=== PATIENT | male | born 1980 | race African-American/Black ===

== ENCOUNTER 2019-11-30 11:21 | Emergency (ER) | payer MEDICAID, SELFPAY ==
[~2019-11-30] VITALS: Ht 180.3 cm; Wt 89.8 kg
[2019-11-30 11:22] VITALS: BP 121/72
--- NOTE | 2019-11-30 11:22 | NUR ---
Patient ambulated to bed 4. RN evaluating patient at bedside.
[2019-11-30] MEDS ORDERED: NACL 0.9% 1,000 ML IV ONE (11:35)
--- NOTE | 2019-11-30 11:35 | NUR ---
A39 Y/M PRESENTS WITH FATIGUE, DIZZINESS X 2 DAY. PT DENIES SOB, FEVER, N/V/D, CP, SICK CONTACTS. PATIENT STATES PAIN OF 0/10 AT THIS TIME; VSS; PATIENT POSITIONED FOR COMFORT; HOB ELEVATED; BEDRAILS UP X1; BED DOWN. ER MD MADE AWARE OF PT STATUS.
[2019-11-30 12:02] LABS: BASOPHILS # (AUTO) 0.1 K/uL (0.00-0.22); BASOPHILS % (AUTO) 1.5 % (0.0-2.0); EOSINOPHILS # (AUTO) 0.3 K/uL (0-0.4); EOSINOPHILS % (AUTO) 5.9 % (0.0-4.0); HEMATOCRIT 45.4 % (36-52); HEMOGLOBIN 15.1 g/dL (12.0-18.0); LYMPHOCYTES # (AUTO) 1.8 K/uL (2.0-11.5); LYMPHOCYTES % (AUTO) 40.9 % (20.5-51.1); MEAN CORPUSCULAR HEMOGLOBIN 29 pg (27-31); MEAN CORPUSCULAR HGB CONC 33 g/dL (33-37); MEAN CORPUSCULAR VOLUME 87.7 fL (80-94); MONOCYTES # (AUTO) 0.3 K/uL (0.8-1.0); MONOCYTES % (AUTO) 6.6 % (1.7-9.3); NEUTROPHILS # (AUTO) 1.9 K/uL (1.8-7.7); NEUTROPHILS % (AUTO) 45.1 % (42.2-75.2); PLATELET COUNT (AUTO) 194 K/uL (140-450); RED BLOOD CELL COUNT(AUTO) 5.17 MIL/uL (4.20-6.10); RED CELL DISTRIBUTION WIDTH 13.9 % (11.6-13.7); WHITE BLOOD COUNT (AUTO) 4.3 K/uL (4.8-10.8)
[2019-11-30 12:04] LABS: APPEARANCE,URINE CLEAR (CLEAR); BILIRUBIN,URINE NEGATIVE (NEGATIVE); BLOOD, URINE NEGATIVE (NEGATIVE); COLOR,URINE YELLOW (YELLOW); LEUKOCYTE ESTERASE ,URINE NEGATIVE (NEGATIVE); NITRITE, URINE NEGATIVE (NEGATIVE); PH,URINE 6.5 (5.0-9.0); UGLUCOSE NEGATIVE (NEGATIVE)
--- NOTE | 2019-11-30 12:08 | NUR ---
XRAY IS AT BEDSIDE.
[2019-11-30 12:31] LABS: ALBUMIN 4.4 g/dL (3.4-5.0); ANION GAP 15.1 (8-16); CARBON DIOXIDE 25.8 mmol/L (21-32); CREATININE 1.2 mg/dL (0.6-1.3); FREE T4 (FREE THYROXINE) 0.89 ng/dL (0.76-1.46); POTASSIUM 3.9 mmol/L (3.5-5.1); THYROID STIMULATING HORMONE 1.48 uIU/mL (0.34-3.74); TOTAL BILIRUBIN 0.7 mg/dL (0.0-1.0)
--- NOTE | 2019-11-30 13:12 | NUR ---
COVID SWAB OBTAINED AND SENT TO THE LAB.
--- NOTE | 2019-11-30 13:27 | NUR ---
Patient discharged with v/s stable. Written and verbal after care instructions given and explained. Patient alert, oriented and verbalized understanding of instructions. Ambulatory with steady gait. All questions addressed prior to discharge. ID band removed. Patient advised to follow up with PMD. Rx of Tamiflu given. Patient educated on indication of medication including possible reaction and side effects. Opportunity to ask questions provided and answered.
[2019-11-30 13:28] VITALS: BP 123/71
== END 2019-11-30 13:27 | disposition home or self-care (01) ==
LOC: EEVIPCON 11:21 → MED 11:21
DX: R53.1 Weakness (principal); Z20.828 Contact with and (suspected) exposure to other viral communicable diseases
CPT/HCPCS: 71045; 80053; 81003; 84439; 84443; 85025; 87804; 93005; 96360; 99285; J7030; U0003

== ENCOUNTER 2020-03-11 05:40 | Emergency (ER) | payer MEDICAID, SELFPAY ==
[~2020-03-11] VITALS: Ht 180.3 cm; Wt 95.3 kg
[2020-03-11 05:45] VITALS: BP 128/70
[2020-03-11 06:07] VITALS: BP 128/70
== END 2020-03-11 06:07 | disposition home or self-care (01) ==
LOC: MED 05:40
DX: K13.79 Other lesions of oral mucosa (principal); R03.0 Elevated blood-pressure reading, without diagnosis of hypertension
CPT/HCPCS: 99283

== ENCOUNTER 2020-03-14 18:13 | Emergency (ER) | payer MEDICAID ==
[~2020-03-14] VITALS: Ht 180.3 cm; Wt 98.0 kg
[2020-03-14 18:28] VITALS: BP 147/89
--- NOTE | 2020-03-14 18:35 | NUR ---
PATIENT AMBULATED TO BED 9.
--- NOTE | 2020-03-14 18:47 | NUR ---
Pt seen and discharged by QUINN abreu. No nursing care rendered. Pt discharged with Naprosyn 500mg, Prednisone 20mg and Chloraseptic throat spray
[2020-03-14 18:48] VITALS: BP 147/89
== END 2020-03-14 18:47 | disposition home or self-care (01) ==
LOC: MED 18:13
DX: J02.9 Acute pharyngitis, unspecified (principal)
CPT/HCPCS: 99283

== ENCOUNTER 2020-06-24 15:26 | Emergency (ER) | payer MEDICAID ==
[~2020-06-24] VITALS: Ht 180.3 cm; Wt 90.7 kg
[2020-06-24 15:42] VITALS: BP 136/85
--- NOTE | 2020-06-24 15:45 | NUR ---
TENT1
[2020-06-24 16:34] VITALS: BP 136/85
--- NOTE | 2020-06-24 16:35 | NUR ---
Patient discharged with v/s stable. Written and verbal after care instructions given and explained. Patient alert, oriented and verbalized understanding of instructions. Ambulatory with steady gait. All questions addressed prior to discharge. ID band removed. Patient advised to follow up with PMD. Rx of Tylenol extra strength 500mg given. Patient educated on indication of medication including possible reaction and side effects. Opportunity to ask questions provided and answered.
== END 2020-06-24 16:35 | disposition home or self-care (01) ==
LOC: MED 15:26
DX: U07.1 COVID-19 (principal)
CPT/HCPCS: 99282

== ENCOUNTER 2020-12-19 08:42 | Emergency (ER) | payer MEDICAID ==
[~2020-12-19] VITALS: Ht 180.3 cm; Wt 99.3 kg
[2020-12-19 08:45] VITALS: BP 124/79
--- NOTE | 2020-12-19 09:00 | NUR ---
40 Y/O MALE C/O BILATERAL EAR PAIN X SATURDAY. PT STATES INTERMITTENT 10/10, SHARP PAIN WITH RINGING. WITH C/O RASH TO BACK OF HEAD, WITH BURNING PAIN. NO REDNESS NOTED. DENIES TRAUMA OR INJURY TO AREA. ALSO REPORTS HEADACHE X 1 DAY. DENIES ANY RECENT FEVER, COUGH, SORE THROAT. TOOK TYLENOL YESTERDAY AFTERNOON WHICH PROVIDED MILD RELIEF. PMH: NONE NKA
--- NOTE | 2020-12-19 09:11 | NUR ---
DR RODRIGUEZ AT BEDSIDE EXAMINING PT
[2020-12-19] MEDS ORDERED: CEPH-588 PO (09:19)
[2020-12-19 09:27] VITALS: BP 124/79
== END 2020-12-19 09:27 | disposition home or self-care (01) ==
LOC: MED 08:42
DX: L03.811 Cellulitis of head [any part, except face] (principal); H92.03 Otalgia, bilateral
CPT/HCPCS: 99283

== ENCOUNTER 2020-12-28 09:28 | Emergency (ER) | payer MEDICAID ==
[~2020-12-28] VITALS: Ht 180.3 cm; Wt 90.7 kg
[~2020-12-28 09:28] MED LIST: CEPH-588 PO
[2020-12-28 09:30] VITALS: BP 139/78
--- NOTE | 2020-12-28 09:30 | NUR ---
TO BED AMBULATORY
--- NOTE | 2020-12-28 09:45 | NUR ---
ERMD assessing patient at the bedside.
--- NOTE | 2020-12-28 09:54 | NUR ---
Patient is a 40 y/o male c/o generalized weakness, chills, subjective fever, and productive cough x3 days. 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 Patient reports taking antibiotics for (L) ear infection but stopped them two days ago because he did not know if the medication was making him feel sick. Patient denies recent travel or sick contacts in the home. Patient denies chest pain, SOB, abdominal pain, n/v/d. PMH:denies NKA Rx: denies
--- NOTE | 2020-12-28 10:00 | NUR ---
Nadege and influenza A/B collected by this development writer and taken to the lab. Specimens handed to Marcos altamirano.
[2020-12-28 11:20] VITALS: BP 139/78
--- NOTE | 2020-12-28 11:20 | NUR ---
Patient discharged with v/s stable. Written and verbal after care instructions given and explained. Patient verbalized understanding. Ambulatory with steady gait. All questions addressed prior to discharge. Advised to follow up with PMD.
== END 2020-12-28 11:20 | disposition home or self-care (01) ==
LOC: MED 09:28
DX: B34.9 Viral infection, unspecified (principal); Z20.822 Contact with and (suspected) exposure to COVID-19; Z79.899 Other long term (current) drug therapy
CPT/HCPCS: 87804; 99283

== ENCOUNTER 2021-02-20 16:25 | Emergency (ER) | payer MEDICAID ==
[~2021-02-20] VITALS: Ht 185.4 cm; Wt 98.5 kg
[2021-02-20 17:07] VITALS: BP 124/71
--- NOTE | 2021-02-20 17:14 | NUR ---
PT IN ER LOBBY
[2021-02-20] MEDS ORDERED: KETOROLAC 60 MG/2 ML VIAL IM ONE (17:20)
[2021-02-20] MEDS ORDERED: LIDO1ADH47 TP (17:29)
[2021-02-20] MEDS ORDERED: METH-1681 PO (17:29)
[2021-02-20] MEDS ORDERED: NAPR-54 PO (17:29)
[2021-02-20 17:50] VITALS: BP 124/71
--- NOTE | 2021-02-20 17:50 | NUR ---
Patient discharged with v/s stable. Written and verbal after care instructions given and explained. Patient alert, oriented and verbalized understanding of instructions. Ambulatory with steady gait. All questions addressed prior to discharge. ID band removed. Patient advised to follow up with PMD. Rx of ROBAXIN, NAPROSYN, LIDOCAINE given. Patient educated on indication of medication including possible reaction and side effects. Opportunity to ask questions provided and answered.
== END 2021-02-20 17:50 | disposition home or self-care (01) ==
LOC: MED 16:25
DX: S39.012A Strain of muscle, fascia and tendon of lower back, initial encounter (principal); X50.0XXA Overexertion from strenuous movement or load, initial encounter; Y93.9 Activity, unspecified; Y92.89 Other specified places as the place of occurrence of the external cause; Y99.8 Other external cause status
CPT/HCPCS: 81002; 96372; 99283; J1885

== ENCOUNTER 2021-03-29 09:33 | Emergency (ER) | payer MEDICAID ==
[~2021-03-29] VITALS: Ht 154.9 cm; Wt 98.4 kg
[~2021-03-29 09:33] MED LIST changes: -CEPH-588 PO; +LIDO1ADH47 TP; +METH-1681 PO; +NAPR-54 PO
[2021-03-29 09:40] VITALS: BP 124/69
--- NOTE | 2021-03-29 09:44 | NUR ---
PT AMBULATED TO BED
--- NOTE | 2021-03-29 09:51 | NUR ---
40 Y/O MALE BIB SELF WITH C/O BACK PAIN, FATIGUE AND HEADACHE SINCE YESTERDAY. DENIES ANY RECENT INJURY OR TRAUMA. REPORTS TAKING TYLENOL AND TOPICAL WITH SOME RELIEF, DENIES FEVER, CP, SOB. PT STATES 9/10 CONTINOUS PAIN. MEDHX: DENIES ALLERGIES: DENIES
--- NOTE | 2021-03-29 10:04 | NUR ---
SAID AT BEDSIDE EXAMINING PT
[2021-03-29] MEDS ORDERED: LIDOCAINE 5% 1 EA PATCH TP ONE (10:26)
--- NOTE | 2021-03-29 10:29 | NUR ---
LAB AT BEDSIDE
[2021-03-29] MEDS: LIDOCAINE 5% 1 EA PATCH TP SCH (10:30)
[2021-03-29] MEDS: NAPROXEN 500 MG TAB PO SCH (10:30)
--- NOTE | 2021-03-29 10:35 | NUR ---
NOVEL SWAB COLLECTED AND HANDED TO ISAURA HARRELL
[2021-03-29 10:47] LABS: BASOPHILS % (AUTO) 0.9 % (0.0-2.0); EOSINOPHILS # (AUTO) 0.3 K/uL (0-0.4); EOSINOPHILS % (AUTO) 8.4 % (0.0-4.0); HEMOGLOBIN 14.1 g/dL (12.0-18.0); LYMPHOCYTES # (AUTO) 1.7 K/uL (2.0-11.5); MEAN CORPUSCULAR HEMOGLOBIN 30 pg (27-31); MEAN CORPUSCULAR HGB CONC 34 g/dL (33-37); MEAN CORPUSCULAR VOLUME 88.1 fL (80-94); MONOCYTES # (AUTO) 0.3 K/uL (0.8-1.0); NEUTROPHILS # (AUTO) 1.2 K/uL (1.8-7.7); NEUTROPHILS % (AUTO) 33.7 % (42.2-75.2); PLATELET COUNT (AUTO) 162 K/uL (140-450); RED BLOOD CELL COUNT(AUTO) 4.76 MIL/uL (4.20-6.10); RED CELL DISTRIBUTION WIDTH 13.9 % (11.6-13.7); WHITE BLOOD COUNT (AUTO) 3.5 K/uL (4.8-10.8)
[2021-03-29 11:02] LABS: ALBUMIN 4.3 g/dL (3.4-5.0); ANION GAP 11.7 (8-16); CARBON DIOXIDE 28.6 mmol/L (21-32); POTASSIUM 4.3 mmol/L (3.5-5.1); TOTAL BILIRUBIN 0.5 mg/dL (0.0-1.0)
[2021-03-29] MEDS ORDERED: CYCL-711 PO (11:27)
[2021-03-29] MEDS ORDERED: LID5T TP (11:27)
[2021-03-29] MEDS ORDERED: NAPR-54 PO (11:27)
[2021-03-29 11:47] VITALS: BP 124/69
--- NOTE | 2021-03-29 11:47 | NUR ---
Patient discharged with v/s stable. Written and verbal after care instructions given and explained. Patient alert, oriented and verbalized understanding of instructions. Ambulatory with steady gait. All questions addressed prior to discharge. ID band removed. Patient advised to follow up with PMD. Rx of FLEXERIL, LIDODERM PATCH 5%, AND NAPROSYN given. Patient educated on indication of medication including possible reaction and side effects. Opportunity to ask questions provided and answered.
== END 2021-03-29 11:47 | disposition home or self-care (01) ==
LOC: MED 09:33
DX: M54.9 Dorsalgia, unspecified (principal); Z20.822 Contact with and (suspected) exposure to COVID-19
CPT/HCPCS: 36415; 80053; 85025; 99283; U0003

== ENCOUNTER 2021-07-08 09:45 | Emergency (ER) | payer MEDICAID ==
[~2021-07-08] VITALS: Ht 182.9 cm; Wt 95.3 kg
[~2021-07-08 09:45] MED LIST changes: +CYCL-711 PO; +LID5T TP
[2021-07-08 09:57] VITALS: BP 124/73
--- NOTE | 2021-07-08 10:04 | NUR ---
TENT3
--- NOTE | 2021-07-08 10:10 | NUR ---
C/O COUGH, FEVER, 4/10 CONCEPCION, WEAKNESS, CONGESTION S/P COVID VACCINE 2ND DOSE X 4 DAYS.
[2021-07-08 13:10] LABS: BASOPHILS # (AUTO) 0.1 K/uL (0.00-0.22); BASOPHILS % (AUTO) 1.1 % (0.0-2.0); EOSINOPHILS # (AUTO) 0.6 K/uL (0-0.4); EOSINOPHILS % (AUTO) 11.6 % (0.0-4.0); HEMATOCRIT 40.8 % (36-52); HEMOGLOBIN 14.2 g/dL (12.0-18.0); LYMPHOCYTES # (AUTO) 2.2 K/uL (2.0-11.5); MEAN CORPUSCULAR HEMOGLOBIN 30 pg (27-31); MEAN CORPUSCULAR HGB CONC 35 g/dL (33-37); MEAN CORPUSCULAR VOLUME 86.3 fL (80-94); MONOCYTES # (AUTO) 0.5 K/uL (0.8-1.0); MONOCYTES % (AUTO) 9.9 % (1.7-9.3); NEUTROPHILS # (AUTO) 1.5 K/uL (1.8-7.7); NEUTROPHILS % (AUTO) 31.4 % (42.2-75.2); PLATELET COUNT (AUTO) 191 K/uL (140-450); RED BLOOD CELL COUNT(AUTO) 4.73 MIL/uL (4.20-6.10); RED CELL DISTRIBUTION WIDTH 13.9 % (11.6-13.7); WHITE BLOOD COUNT (AUTO) 4.9 K/uL (4.8-10.8)
[2021-07-08 13:46] LABS: ALBUMIN 4.1 g/dL (3.4-5.0); ANION GAP 12.2 (8-16); CARBON DIOXIDE 28.5 mmol/L (21-32); POTASSIUM 3.7 mmol/L (3.5-5.1); TOTAL BILIRUBIN 0.4 mg/dL (0.0-1.0)
[2021-07-08] MEDS ORDERED: ACET-10509 PO (14:01)
--- NOTE | 2021-07-08 14:15 | NUR ---
LUIS SWABED AND WALKED TO THE LAB.
--- NOTE | 2021-07-08 14:22 | NUR ---
Patient discharged with v/s stable. Written and verbal after care instructions given and explained. Patient alert, oriented and verbalized understanding of instructions. Ambulatory with steady gait. All questions addressed prior to discharge. ID band removed. Patient advised to follow up with PMD. Rx of ACETAMINOPHEN TAB given. Opportunity to ask questions provided and answered.
== END 2021-07-08 14:21 | disposition home or self-care (01) ==
LOC: MED 09:45
DX: B34.9 Viral infection, unspecified (principal); Z20.822 Contact with and (suspected) exposure to COVID-19; Z79.899 Other long term (current) drug therapy
CPT/HCPCS: 36415; 80053; 84484; 85025; 93005; 99284; U0003

== ENCOUNTER 2021-07-31 08:30 | Emergency (ER) | payer MEDICAID ==
[~2021-07-31] VITALS: Ht 180.3 cm; Wt 100.7 kg
[~2021-07-31 08:30] MED LIST changes: +ACET-10509 PO
[2021-07-31 08:35] VITALS: BP 115/71
[2021-07-31 10:21] LABS: BASOPHILS % (AUTO) 0.7 % (0.0-2.0); EOSINOPHILS # (AUTO) 0.4 K/uL (0-0.4); EOSINOPHILS % (AUTO) 9.8 % (0.0-4.0); HEMATOCRIT 44.8 % (36-52); HEMOGLOBIN 15.1 g/dL (12.0-18.0); LYMPHOCYTES # (AUTO) 1.9 K/uL (2.0-11.5); LYMPHOCYTES % (AUTO) 42.9 % (20.5-51.1); MEAN CORPUSCULAR HEMOGLOBIN 29 pg (27-31); MEAN CORPUSCULAR HGB CONC 34 g/dL (33-37); MEAN CORPUSCULAR VOLUME 87.2 fL (80-94); MONOCYTES # (AUTO) 0.4 K/uL (0.8-1.0); MONOCYTES % (AUTO) 8.1 % (1.7-9.3); NEUTROPHILS # (AUTO) 1.7 K/uL (1.8-7.7); NEUTROPHILS % (AUTO) 38.5 % (42.2-75.2); PLATELET COUNT (AUTO) 162 K/uL (140-450); RED BLOOD CELL COUNT(AUTO) 5.14 MIL/uL (4.20-6.10); WHITE BLOOD COUNT (AUTO) 4.5 K/uL (4.8-10.8)
[2021-07-31 11:16] LABS: ALBUMIN 4.2 g/dL (3.4-5.0); ANION GAP 14.4 (8-16); CARBON DIOXIDE 29.6 mmol/L (21-32); CREATININE 0.9 mg/dL (0.6-1.3); MAGNESIUM 1.8 mg/dL (1.8-2.4); PHOSPHORUS 3.4 mg/dL (2.5-4.9); TOTAL BILIRUBIN 0.7 mg/dL (0.0-1.0)
--- NOTE | 2021-07-31 12:16 | NUR ---
PT SEEN AND D/C BY DR GOMEZ, NO NURSING INTERVENTIONS PROVIDED
[2021-07-31 12:17] VITALS: BP 125/70
--- NOTE | 2021-07-31 12:17 | NUR ---
Patient discharged with v/s stable. Written and verbal after care instructions ABOUT WEAKNESS given and explained. Patient verbalized understanding. Ambulatory with steady gait. All questions addressed prior to discharge. Advised to follow up with PMD. D/C BY DR GOMEZ
== END 2021-07-31 12:17 | disposition home or self-care (01) ==
LOC: MED 08:30
DX: R53.1 Weakness (principal); Z79.899 Other long term (current) drug therapy
CPT/HCPCS: 36415; 71045; 80053; 83735; 84100; 85025; 93005; 99285

== ENCOUNTER 2021-08-21 17:24 | Emergency (ER) | payer MEDICAID ==
[~2021-08-21] VITALS: Ht 182.9 cm; Wt 95.3 kg
[2021-08-21 17:37] VITALS: BP 143/82
[2021-08-21] MEDS ORDERED: TETRACAINE HCL/PF 0.5% OPTH 4 ML BTL ONE (18:48)
[2021-08-21] MEDS ORDERED: FLUORESCEIN OPTH STRIP 1 MG ONE (18:48)
[2021-08-21] MEDS ORDERED: FLUORESCEIN OPTH STRIP 1 MG OP ONE (18:50)
[2021-08-21] MEDS ORDERED: TETRACAINE HCL/PF 0.5% OPTH 4 ML BTL OP ONE (18:50)
[2021-08-21] MEDS ORDERED: ERYT5OIN51 OP (18:59)
[2021-08-21] MEDS ORDERED: ACET-8386 PO (18:59)
[2021-08-21 19:13] VITALS: BP 143/82
--- NOTE | 2021-08-21 19:13 | NUR ---
Patient discharged with v/s stable. Written and verbal after care instructions given and explained. Patient alert, oriented and verbalized understanding of instructions. Ambulatory with steady gait. All questions addressed prior to discharge. ID band removed. Patient advised to follow up with PMD. Rx of hydrocodon-acetaminophen 5-325 and erythromycin base given. Given excused work form. Patient educated on indication of medication including possible reaction and side effects. Opportunity to ask questions provided and answered.
== END 2021-08-21 19:13 | disposition home or self-care (01) ==
LOC: MED 17:24
DX: S05.01XA Injury of conjunctiva and corneal abrasion without foreign body, right eye, initial encounter (principal); X58.XXXA Exposure to other specified factors, initial encounter; Y93.89 Activity, other specified; Y92.89 Other specified places as the place of occurrence of the external cause; Y99.8 Other external cause status
CPT/HCPCS: 99283

== ENCOUNTER 2022-01-14 09:01 | Emergency (ER) | payer MEDICAID ==
[~2022-01-14] VITALS: Ht 182.9 cm; Wt 96.2 kg
[~2022-01-14 09:01] MED LIST changes: +ACET-8386 PO; +ERYT5OIN51 OP
[2022-01-14 09:07] VITALS: BP 132/85
--- NOTE | 2022-01-14 09:11 | NUR ---
AMBULATED TO ER BED 3
[2022-01-14] MEDS ORDERED: MORPHINE SULFATE 4 MG/ML SYR IVP ONE (09:35)
[2022-01-14] MEDS ORDERED: NACL 0.9% 1,000 ML IV ONE (09:35)
[2022-01-14] MEDS ORDERED: ONDANSETRON 4 MG/2 ML VIAL IVP ONE (09:35)
[2022-01-14 10:03] LABS: BASOPHILS % (AUTO) 0.6 % (0.0-2.0); EOSINOPHILS # (AUTO) 0.4 K/uL (0-0.4); HEMATOCRIT 41.2 % (36-52); LYMPHOCYTES # (AUTO) 1.9 K/uL (2.0-11.5); MEAN CORPUSCULAR HEMOGLOBIN 29 pg (27-31); MEAN CORPUSCULAR HGB CONC 34 g/dL (33-37); MEAN CORPUSCULAR VOLUME 86.2 fL (80-94); MONOCYTES # (AUTO) 0.6 K/uL (0.8-1.0); MONOCYTES % (AUTO) 9.3 % (1.7-9.3); NEUTROPHILS # (AUTO) 3.3 K/uL (1.8-7.7); NEUTROPHILS % (AUTO) 53.1 % (42.2-75.2); PLATELET COUNT (AUTO) 172 K/uL (140-450); RED BLOOD CELL COUNT(AUTO) 4.78 MIL/uL (4.20-6.10); RED CELL DISTRIBUTION WIDTH 14.1 % (11.6-13.7); WHITE BLOOD COUNT (AUTO) 6.2 K/uL (4.8-10.8)
--- NOTE | 2022-01-14 10:09 | NUR ---
PT TO CT
[2022-01-14 10:15] LABS: ALBUMIN 3.9 g/dL (3.4-5.0); ANION GAP 12.2 (8-16); CARBON DIOXIDE 26.6 mmol/L (21-32); CREATININE 1.1 mg/dL (0.6-1.3); POTASSIUM 3.8 mmol/L (3.5-5.1); TOTAL BILIRUBIN 0.4 mg/dL (0.0-1.0)
--- NOTE | 2022-01-14 11:06 | NUR ---
PT ASLEEP IN BED RESP EVEN AND UNLABORED. PT ON BEDSIDE MONITOR. SIDE RAILS UP X2 BED AT LOWEST POSITION
[2022-01-14] MEDS ORDERED: DICYCLOMINE HCL LIQUID 20 MG, ALUMINUM HYD/MAG/SIMETHICONE 30 ML, LIDOCAINE VISCOUS 2% ... PO ONE ×3 (13:20)
--- NOTE | 2022-01-14 13:21 | NUR ---
PAIN LEVEL 9/10. PT STATES HAVING "GAS PAIN" REQUESTING MEDICATION. DR BLACK AWARE.
[2022-01-14] MEDS ORDERED: ALUMINUM HYD/MAG/SIMETHICONE 30 ML UDC ONE ×2 (13:28→13:29)
[2022-01-14] MEDS ORDERED: DICYCLOMINE HCL LIQUID 10 MG/5 ML UDC ONE (13:28)
[2022-01-14 13:29] LABS: APPEARANCE,URINE CLEAR (CLEAR); BILIRUBIN,URINE NEGATIVE (NEGATIVE); BLOOD, URINE NEGATIVE (NEGATIVE); COLOR,URINE YELLOW (YELLOW); LEUKOCYTE ESTERASE ,URINE NEGATIVE (NEGATIVE); NITRITE, URINE NEGATIVE (NEGATIVE); UGLUCOSE NEGATIVE (NEGATIVE)
[2022-01-14] MEDS ORDERED: IBUP-2213 PO (13:38)
[2022-01-14] MEDS ORDERED: CYCL-711 PO (13:38)
[2022-01-14 13:53] VITALS: BP 123/74
--- NOTE | 2022-01-14 13:53 | NUR ---
Patient discharged with v/s stable. Written and verbal after care instructions given and explained. Patient alert, oriented and verbalized understanding of instructions. Ambulatory with steady gait. All questions addressed prior to discharge. ID band removed. Patient advised to follow up with PMD. Rx of IBUPROFEN FLEXERIL given. Patient educated on indication of medication including possible reaction and side effects. Opportunity to ask questions provided and answered.
== END 2022-01-14 13:53 | disposition home or self-care (01) ==
LOC: MED 09:01
DX: S39.012A Strain of muscle, fascia and tendon of lower back, initial encounter (principal); X58.XXXA Exposure to other specified factors, initial encounter; Y93.89 Activity, other specified; Y92.89 Other specified places as the place of occurrence of the external cause; Y99.8 Other external cause status
CPT/HCPCS: 36415; 74176; 80053; 81001; 81003; 85025; 87086; 96361; 96374; 96375; 99285; J2270; J2405; J7030

== ENCOUNTER 2022-05-23 13:21 | Emergency (ER) | payer MEDICAID ==
[~2022-05-23] VITALS: Ht 180.3 cm; Wt 86.2 kg
[~2022-05-23 13:21] MED LIST changes: +IBUP-2213 PO
[2022-05-23 13:30] VITALS: BP 140/68
[2022-05-23] MEDS ORDERED: BENZ150C2 PO (14:26)
[2022-05-23] MEDS ORDERED: IBUP-2213 PO (14:26)
== END 2022-05-23 14:44 | disposition home or self-care (01) ==
LOC: MED 13:21
DX: J06.9 Acute upper respiratory infection, unspecified (principal); Z20.822 Contact with and (suspected) exposure to COVID-19; Z79.899 Other long term (current) drug therapy
CPT/HCPCS: 99283

== ENCOUNTER 2022-11-22 10:38 | Emergency (ER) | payer MEDICAID ==
[~2022-11-22] VITALS: Ht 182.9 cm; Wt 95.3 kg
[~2022-11-22 10:38] MED LIST changes: -ACET-8386 PO; +ACET-8905 PO; +BENZ150C2 PO
[2022-11-22 11:05] VITALS: BP 127/97
[2022-11-22] MEDS ORDERED: BENZ-300 PO (12:37)
--- NOTE | 2022-11-22 14:46 | NUR ---
Patient discharged with v/s stable. Written and verbal after care instructions given and explained. Patient alert, oriented and verbalized understanding of instructions. Ambulatory with to car. All questions addressed prior to discharge. ID band removed. Patient advised to follow up with PMD. Rx of CEPHACOL given. Patient educated on indication of medication including possible reaction and side effects. Opportunity to ask questions provided and answered.
== END 2022-11-22 14:44 | disposition home or self-care (01) ==
LOC: MED 10:38
DX: J02.9 Acute pharyngitis, unspecified (principal); R03.0 Elevated blood-pressure reading, without diagnosis of hypertension; Z20.822 Contact with and (suspected) exposure to COVID-19; Z79.899 Other long term (current) drug therapy; Z79.1 Long term (current) use of non-steroidal anti-inflammatories (NSAID); Z79.2 Long term (current) use of antibiotics
CPT/HCPCS: 87081; 99283

== ENCOUNTER 2023-01-17 08:51 | Emergency (ER) | payer MEDICAID ==
[~2023-01-17] VITALS: Ht 180.3 cm; Wt 99.6 kg
[~2023-01-17 08:51] MED LIST changes: +BENZ-300 PO
[2023-01-17 09:02] VITALS: BP 135/84; PULSE 67; RESP 18; TEMP 97.4; O2SAT 97
--- NOTE | 2023-01-17 09:10 | NUR ---
PATIENT AMBULATED TO ER BED 12
[2023-01-17 09:19] VITALS: BP 135/84; PULSE 67; RESP 18; TEMP 97.4; O2SAT 97
--- NOTE | 2023-01-17 09:22 | NUR ---
42M FROM HOME C/O LEFT SIDED MASS TO LEG. STATES "I'VE HAD THIS FOR 1 MONTH AND ITS JUST GETTING BIGGER" [id number] MASS NOTED TO LEFT UPPER LEG. NO DRAINAGE NOTED. COOL TO [facility]. PT REPORTS PAIN UPON PALPATION. DR. BARNES AT BEDSIDE.
== END 2023-01-17 09:46 | disposition home or self-care (01) ==
LOC: MED 08:51
DX: R22.42 Localized swelling, mass and lump, left lower limb (principal); Z79.899 Other long term (current) drug therapy
CPT/HCPCS: 99284

== ENCOUNTER 2023-06-19 10:03 | Emergency (ER) | payer MEDICAID ==
[~2023-06-19] VITALS: Ht 180.3 cm; Wt 81.6 kg
[2023-06-19 10:25] VITALS: BP 138/82; PULSE 60; RESP 18; TEMP 98.1; O2SAT 98
[2023-06-19] MEDS ORDERED: NAPR-1559 PO (10:41)
[2023-06-19] MEDS ORDERED: LORA1T1237 PO (10:46)
[2023-06-19] MEDS ORDERED: ROBAC PO (10:46)
[2023-06-19 10:54] VITALS: BP 138/82; PULSE 60; RESP 18; TEMP 98.1; O2SAT 98
== END 2023-06-19 10:54 | disposition home or self-care (01) ==
LOC: MED 10:03
DX: J06.9 Acute upper respiratory infection, unspecified (principal); Z79.899 Other long term (current) drug therapy; Z79.1 Long term (current) use of non-steroidal anti-inflammatories (NSAID); Z79.2 Long term (current) use of antibiotics
CPT/HCPCS: 99282

== ENCOUNTER 2024-03-04 10:07 | Emergency (ER) | payer MEDICAID, OTHER ==
[~2024-03-04] VITALS: Ht 180.3 cm; Wt 99.3 kg
[~2024-03-04 10:07] MED LIST changes: -ACET-10509 PO; +ACET500T99 PO; -BENZ150C2 PO; +BENZ150C7 PO; +LORA1T1237 PO; +NAPR-1559 PO; +NAPR-337 PO; -NAPR-54 PO; +ROBAC PO
[2024-03-04 10:30] VITALS: BP 119/82; PULSE 65; RESP 16; TEMP 97.9; O2SAT 98
[2024-03-04 11:01] LABS: FLU A ANTIGEN NEGATIVE (NEGATIVE); FLU B ANTIGEN NEGATIVE (NEGATIVE)
[2024-03-04] MEDS ORDERED: BENZ200C4 PO (12:14)
[2024-03-04] MEDS ORDERED: FLONAS NS (12:14)
[2024-03-04] MEDS ORDERED: IBUP-2218 PO (12:14)
== END 2024-03-04 12:24 | disposition home or self-care (01) ==
LOC: MED 10:07
DX: J06.9 Acute upper respiratory infection, unspecified (principal); B97.89 Other viral agents as the cause of diseases classified elsewhere; Z20.822 Contact with and (suspected) exposure to COVID-19; Z79.899 Other long term (current) drug therapy
CPT/HCPCS: 99283